=== PATIENT | female | born 1955 | race Two or more races ===

== ENCOUNTER 2019-12-09 05:57 | Day surgery (SDC) | payer OTHER ==
[~2019-12-09 05:57] MED LIST: ATORVASTATIN CA20 MG PO; LOSARTAN POTASS50 MG PO
== END 2019-12-09 19:40 | disposition home or self-care (01) ==
LOC: CIR.AMB 05:57
DX: C50.411 Malignant neoplasm of upper-outer quadrant of right female breast (principal)

== ENCOUNTER 2021-04-11 10:50 | Outpatient (CLI) | payer OTHER | END 2021-04-11 10:58 | disposition home or self-care (01) | LOC: SONOGRAMA 10:50 | PROVIDERS: ATTEND Pathology Anatomic Pathology & Clinical Pathology | DX: E04.1 Nontoxic single thyroid nodule (principal) ==

== ENCOUNTER 2021-12-07 07:53 | Outpatient (CLI) | payer OTHER | END 2021-12-07 07:58 | disposition home or self-care (01) | LOC: TOM 07:53 | PROVIDERS: ATTEND Student in an Organized Health Care Education/Training Program | DX: Z12.11 Encounter for screening for malignant neoplasm of colon (principal) ==

== ENCOUNTER 2024-02-28 16:53 | Outpatient (CLI) | payer OTHER | END 2024-02-28 16:57 | disposition home or self-care (01) | LOC: SONOGRAMA 16:53 | PROVIDERS: ATTEND Pathology Anatomic Pathology & Clinical Pathology | DX: D34 Benign neoplasm of thyroid gland (principal); E06.3 Autoimmune thyroiditis; E04.1 Nontoxic single thyroid nodule ==